=== PATIENT | female | born 1965 | race Caucasian/White ===

== ENCOUNTER → 2016-09-09 | Outpatient (CLI) | payer OTHER ==
[~2016-09-09] MED LIST: ERGO1CAP10 PO; LEVO500T8 PO; LEVO75TA3 PO; LORA-474 PO; NOVOLOGP2 SQ; PRIS100T PO; VITA100064 PO; ZOFR4TAB PO; compazine
[2016-09-09 07:12] LABS: CREATININE RANDOM URINE 23 MG/DL (27-300)
[2016-09-09 07:22] LABS: MICRO ALBUMIN RANDOM URINE RAW LESS THAN 5.0 MG/L (0.0-30.0); MICROALBUMIN/CREAT RATIO RAND 22 MG/G CRE (0-30)
[2016-09-09 07:43] LABS: ALT (GPT) 24 U/L (10-53); ANION GAP 7 MEQ/L (5-15); AST (GOT) 17 U/L (15-37); BICARBONATE 26.8 MEQ/L (21.0-32.0); BLOOD UREA NITROGEN 12 MG/DL (7-18); CHLORIDE 103 MEQ/L (98-107); GLOMERULAR FILTRATION RATE 76 ML/MIN (>89); GLUCOSE,FASTING 277 MG/DL (74-99); POTASSIUM 4.9 MEQ/L (3.5-5.1); SODIUM (NA) 137 MEQ/L (136-145)
[2016-09-09 07:52] LABS: ALKALINE PHOSPHATASE 149 U/L (45-117); FREE T4 0.96 NG/DL (0.76-1.46); HDL CHOLESTEROL 79.6 MG/DL (40.0-60.0); LDL CHOLESTEROL 57 MG/DL (0-99); TOTAL BILIRUBIN ADULT 0.2 MG/DL (0.2-1.0)
[2016-09-09 17:30] LABS: HEMOGLOBIN A1a 1.3 %; HEMOGLOBIN A1b 0.8 %; HEMOGLOBIN Ao 77.6 %; HEMOGLOBIN F 1.9 %; HEMOGLOBIN P3 4.6 %
== END ==
LOC: CLAB 06:36
PROVIDERS: ATTEND Internal Medicine Endocrinology, Diabetes & Metabolism
DX: E11.9 Type 2 diabetes mellitus without complications (principal); I10 Essential (primary) hypertension; E78.5 Hyperlipidemia, unspecified; E03.9 Hypothyroidism, unspecified
CPT/HCPCS: 36415; 80053; 80061; 82043; 83036; 84439; 84443

== ENCOUNTER → 2016-10-15 | Outpatient (CLI) | payer OTHER ==
[2016-10-15 11:21] LABS: BACTERIA, URINE MANY /hpf; BLOOD, URINE MOD (NEG); COMMENT (UR) CULTURE INDICATED; CULTURE IF INDICATED CULTURE INDICATED; GLUCOSE,URINE NEG (NEG); KETONE, URINE NEG (NEG); MUCUS URINE FEW /lpf (OCC); NITRITE,URINE NEG (NEG); TRANSITIONAL EPI CELLS, URINE 1 /hpf; URINE COLOR YELLOW (YELLW/STRAW)
== END ==
LOC: CLAB 10:13
PROVIDERS: ATTEND Internal Medicine
DX: N39.0 Urinary tract infection, site not specified (principal); B96.89 Other specified bacterial agents as the cause of diseases classified elsewhere
CPT/HCPCS: 81001; 87077; 87086; 87186

== ENCOUNTER 2016-10-22 10:34 | Inpatient (IN) | payer OTHER ==
[~2016-10-22] VITALS: Ht 162.6 cm; Wt 82.5 kg
[~2016-10-22 10:34] MED LIST changes: -LEVO500T8 PO; -LORA-474 PO; -VITA100064 PO; -ZOFR4TAB PO; -compazine
[2016-10-22 10:37] VITALS: BP 127/58; PULSE 100; RESP 20; TEMP 98.7; O2SAT 99
[2016-10-22] MEDS ORDERED: VITA100064 PO (10:48)
[2016-10-22] MEDS ORDERED: compazine (10:51)
[2016-10-22] MEDS ORDERED: ZOFR4TAB PO (10:51)
[2016-10-22] MEDS ORDERED: LORA-474 PO (10:51)
[2016-10-22 10:59] VITALS: O2SAT 100
[2016-10-22] MEDS ORDERED: SODIUM CHLORIDE 0.9% FLUSH 10 ML FLUSH IVF PRN (11:00)
[2016-10-22] MEDS ORDERED: ASPIRIN 81 MG CHEW TAB CHEW ONE (11:15)
[2016-10-22] MEDS ORDERED: ONDANSETRON HCL 4 MG/2 ML VIAL IV PUSH ONE (11:15)
[2016-10-22 11:24] LABS: AUTOMATED NEUTROPHIL # 9.8 TH/MM3 (1.8-7.7); BASOPHIL # 0.1 TH/MM3 (0-0.2); BASOPHIL % 0.4 % (0.0-2.0); EOSINOPHIL # 0.1 TH/MM3 (0-0.4); EOSINOPHIL % 0.6 % (0.0-4.0); HEMATOCRIT 39.9 % (35.0-46.0); HEMO FLAGS DIFF FINAL; LYMPH % 9.1 % (9.0-44.0); LYMPHOCYTE # 1.1 TH/MM3 (1.0-4.8); MEAN CELL VOLUME 96.6 FL (80.0-100.0); MEAN CORPUSCULAR HEMOGLOBIN 31.7 PG (27.0-34.0); MEAN CORPUSCULAR HGB CONC 32.8 % (32.0-36.0); MONO % 11.3 % (0.0-8.0); NEUT % 78.6 % (16.0-70.0); PLATELET COUNT 423 TH/MM3 (150-450); RED BLOOD COUNT 4.13 MIL/MM3 (4.00-5.30); RED CELL DISTRIBUTION WIDTH 12.4 % (11.6-17.2); WHITE BLOOD COUNT 12.5 TH/MM3 (4.0-11.0)
--- NOTE | 2016-10-22 11:24 | PD ---
HPI Chief Complaint: GI Complaint Time Seen by Provider: 10:46 Travel History International Travel<30 days: No Contact w/Intl Traveler<30days: No Traveled to known affect area: No History of Present Illness HPI Patient is a 51-year-old female presents emergency Department with epigastric and midsternal chest pain for the past day or so. Patient states she's been having fevers on and off and some discolored urine foul-smelling. Patient states her primary care physician Dr. Rivera prescribes her extra Keflex that she took some of that then she had a urine culture performed with Dr. Rivera which showed sensitivity Cipro. She was switched over to Cipro. She states she still been having some nausea. She states that she is diabetic as well. Never had any problems with her heart no stress test no cardiac catheterization in the past. Denies any shortness of breath. She called her primary care physician today who told her she might have pyelonephritis and referred her to the emergency department. States his symptoms are moderate and worsening over the past week. She also states that she feels dehydrated. PFSH Past Medical History Blood Disorders: No Depression: Yes Cancer: No Cardiovascular Problems: Yes (MURMUR) Diabetes: Yes Diminished Hearing: No Endocrine: Yes (HYPOTHYROID ) Gastrointestinal Disorders: No Genitourinary: No Hepatitis: No Hiatal Hernia: No Immune Disorder: No Musculoskeletal: No Neurologic: No Psychiatric: No Respiratory: No Immunizations Current: No Thyroid Disease: Yes (HYPO) ?: Not Past Surgical History Abdominal Surgery: Yes (INGUINAL AND UMBILICAL HERNIA REPAIR, GASTRIC DUPLICATION REMOVAL) Body Medical Devices: INSULIN PUMP Cardiac Surgery: No Section: Yes (X1) Cholecystectomy: Yes (1989) Ear Surgery: No Endocrine Surgery: No Eye Surgery: No Genitourinary Surgery: No Gynecologic Surgery: Yes (C SECTION) Insulin Pump: Yes Oral Surgery: No Pacemaker: No Thoracic Surgery: No Other Surgery: Yes (inguinal and imbulical hernia repair) Social History Alcohol Use: Yes (RARELY) Tobacco Use: No Substance Use: No Allergies-Medications (Allergen,Severity, Reaction): Coded Allergies: No Known Allergies (Verified , 10/22/16) Reported Meds & Prescriptions Reported Meds & Active Scripts Active Reported [compazine] Zofran (Ondansetron HCl) 4 Mg Tab 4 Mg PO Q8HR PRN Ativan (Lorazepam) 1 Mg Tab 1 Mg PO Q8H PRN Vitamin D (Cholecalciferol) 1,000 Unit Tab 50,000 Units PO WEEKLY Pristiq 24 HR (Desvenlafaxine ER 24 HR) 100 Mg Tab 100 Mg PO DAILY Levothyroxine (Levothyroxine Sodium) 75 Mcg Tab 75 Mcg PO DAILY Novolog Inj (Insulin Aspart) 1,000 Unit/10 Ml Vial 35 Units SQ PUMP Review of Systems Except as stated in HPI: all other systems reviewed are Neg Physical Exam Narrative GENERAL: Well-developed well-nourished, thin in no obvious distress. SKIN: Focused skin assessment warm/dry. HEAD: Atraumatic. Normocephalic. EYES: Pupils equal and round. No scleral icterus. No injection or drainage. ENT: No nasal bleeding or discharge. Mucous membranes pink and moist. NECK: Trachea midline. No JVD. CARDIOVASCULAR: Regular rate and rhythm. No murmur appreciated. 2+ bilateral equal pulses in all 4 extremity's, no carotid bruits. RESPIRATORY: No accessory muscle use. Clear to auscultation. Breath sounds equal bilaterally. GASTROINTESTINAL: Abdomen soft, non-tender, nondistended. Hepatic and splenic margins not palpable. MUSCULOSKELETAL: No obvious deformities. No clubbing. No cyanosis. No edema. NEUROLOGICAL: Awake and alert. No obvious cranial nerve deficits. Motor grossly within normal limits. Normal speech. PSYCHIATRIC: Appropriate mood and affect; insight and judgment normal. Data Data Last Documented VS Vital Signs Date Time Temp Pulse Resp B/P Pulse Ox O2 Delivery O2 Flow Rate FiO2 10/22/16 11:25 99 20 152/68 100 Room Air 10/22/16 10:37 98.7 Orders Electrocardiogram (10/22/16 10:46) Complete Blood Count With Diff (10/22/16 10:46) Comprehensive Metabolic Panel (10/22/16 10:46) Magnesium (Mg) (10/22/16 10:46) Prothrombin Time / Inr (Pt) (10/22/16 10:46) Act Partial Throm Time (Ptt) (10/22/16 10:46) Troponin I (10/22/16 10:46) Chest, Single Ap (10/22/16 10:46) Ecg Monitoring (10/22/16 10:46) Iv Access Insert/Monitor (10/22/16 10:46) Oximetry (10/22/16 10:46) Oxygen Administration (10/22/16 10:46) Sodium Chloride 0.9% Flush (Ns Flush) (10/22/16 11:00) Lactic Acid (10/22/16 10:46) Lipase (10/22/16 10:46) Urinalysis - C+S If Indicated (10/22/16 10:46) Aspirin Chew (Aspirin Chew) (10/22/16 11:15) Ondansetron Inj (Zofran Inj) (10/22/16 11:15) Sodium Chlor 0.9% 1000 Ml Inj (Ns 1000 M (10/22/16 11:30) Metoclopramide Inj (Reglan Inj) (10/22/16 12:00) Sodium Chlor 0.9% 1000 Ml Inj (Ns 1000 M (10/22/16 12:45) Basic Metabolic Panel (Bmp) (10/22/16 13:46) Troponin I (10/22/16 13:46) Beta Hydroxybutyrate (Acetone) (10/22/16 13:46) Meat Packager / Telemetry JÚNIOR.Q8H (10/22/16 14:59) ^ Insert Iv (10/22/16 14:59) Sodium Chlor 0.9% 1000 Ml Inj (Ns 1000 M (10/22/16 14:59) Dext 5%-Nacl 0.9% 1000 Ml Inj (D5w-Ns 10 (10/22/16 14:59) Insulin Regular (Iv Infusion) (Novolin R (10/22/16 15:00) Potassium Chlor 40 Meq Premix (Kcl 40 Me (10/22/16 15:00) Potassium Chlor 40 Meq Premix (Kcl 40 Me (10/22/16 15:00) Potassium Chlor 20 Meq Premix (Kcl 20 Me (10/22/16 15:00) Potassium Chlor 20 Meq Premix (Kcl 20 Me (10/22/16 15:00) Potassium Chlor 20 Meq Premix (Kcl 20 Me (10/22/16 15:00) Potassium Chlor 20 Meq Premix (Kcl 20 Me (10/22/16 15:00) Potassium Chlor 20 Meq Premix (Kcl 20 Me (10/22/16 15:00) Potassium Chlor 20 Meq Premix (Kcl 20 Me (10/22/16 15:00) Sodium Bicarbonate 8.4% Inj (Sodium Bica (10/22/16 15:00) Sodium Bicarbonate 8.4% Inj (Sodium Bica (10/22/16 15:00) Sodium Phosphate Inj (Sodium Phosphate I (10/22/16 15:00) Hemoglobin (Hgb) A1c (10/22/16 14:59) Basic Metabolic Panel (Bmp) (10/22/16 19:59) Basic Metabolic Panel (Bmp) (10/23/16 01:59) Basic Metabolic Panel (Bmp) (10/23/16 07:59) Basic Metabolic Panel (Bmp) (10/23/16 13:59) Magnesium (Mg) (10/22/16 19:59) Magnesium (Mg) (10/23/16 01:59) Magnesium (Mg) (10/23/16 07:59) Magnesium (Mg) (10/23/16 13:59) Phosphorus (Po4) (10/22/16 19:59) Phosphorus (Po4) (10/23/16 01:59) Phosphorus (Po4) (10/23/16 07:59) Phosphorus (Po4) (10/23/16 13:59) Beta Hydroxybutyrate (Acetone) (10/23/16 01:59) Beta Hydroxybutyrate (Acetone) (10/23/16 13:59) Blood Culture (10/22/16 14:59) Blood Gas Venous (Vbg) (10/22/16 14:59) Ciprofloxacin 400 Mg Premix (Cipro 400 M (10/22/16 15:00) Prochlorperazine Inj (Compazine Inj) (10/22/16 16:30) Admit Order (Ed Use Only) (10/22/16 ) Labs Laboratory Tests Test 10/22/16 10/22/16 10/22/16 10/22/16 11:06 11:45 13:50 14:20 White Blood Count 12.5 TH/MM3 Red Blood Count 4.13 MIL/MM3 Hemoglobin 13.1 GM/DL Hematocrit 39.9 % Mean Corpuscular Volume 96.6 FL Mean Corpuscular Hemoglobin 31.7 PG Mean Corpuscular Hemoglobin 32.8 % Concent Red Cell Distribution Width 12.4 % Platelet Count 423 TH/MM3 Mean Platelet Volume 7.8 FL Neutrophils (%) (Auto) 78.6 % Lymphocytes (%) (Auto) 9.1 % Monocytes (%) (Auto) 11.3 % Eosinophils (%) (Auto) 0.6 % Basophils (%) (Auto) 0.4 % Neutrophils # (Auto) 9.8 TH/MM3 Lymphocytes # (Auto) 1.1 TH/MM3 Monocytes # (Auto) 1.4 TH/MM3 Eosinophils # (Auto) 0.1 TH/MM3 Basophils # (Auto) 0.1 TH/MM3 CBC Comment DIFF FINAL Differential Comment Prothrombin Time 10.6 SEC Prothromb Time International 1.0 RATIO Ratio Activated Partial 26.0 SEC Thromboplast Time Sodium Level 138 MEQ/L 141 MEQ/L Potassium Level 4.0 MEQ/L 4.2 MEQ/L Chloride Level 105 MEQ/L 110 MEQ/L Carbon Dioxide Level 16.7 MEQ/L 13.8 MEQ/L Anion Gap 16 MEQ/L 17 MEQ/L Blood Urea Nitrogen 10 MG/DL 9 MG/DL Creatinine 0.89 MG/DL 0.74 MG/DL Estimat Glomerular Filtration 67 ML/MIN 83 ML/MIN Rate Random Glucose 233 MG/DL 244 MG/DL Lactic Acid Level 0.9 mmol/L Calcium Level 9.7 MG/DL 8.0 MG/DL Magnesium Level 1.9 MG/DL Total Bilirubin 0.5 MG/DL Aspartate Amino Transf 22 U/L (AST/SGOT) Alanine Aminotransferase 38 U/L (ALT/SGPT) Alkaline Phosphatase 157 U/L Troponin I LESS THAN 0.02 LESS THAN 0.02 NG/ML NG/ML Total Protein 8.0 GM/DL Albumin 3.5 GM/DL Lipase 60 U/L Urine Color LIGHT-YELLOW Urine Turbidity CLEAR Urine pH 5.5 Urine Specific [place] 1.012 Urine Protein TRACE mg/dL Urine Glucose (UA) 300 mg/dL Urine Ketones 150 mg/dL Urine Occult Blood TRACE Urine Nitrite NEG Urine Bilirubin NEG Urine Urobilinogen LESS THAN 2.0 MG/DL Urine Leukocyte Esterase SMALL Urine RBC 5 /hpf Urine WBC 8 /hpf Urine Squamous Epithelial <1 /hpf Cells Urine Mucus FEW /lpf Microscopic Urinalysis Comment CULT NOT INDICATED B-Hydroxybutyrate 6.53 MMOL/L Blood Gas Puncture Site PERIPHERAL Blood Gas Patient Temperature 98.6 Venous Blood pH 7.29 Venous Blood Partial Pressure 26 mmHg CO2 Venous Blood Partial Pressure 46 mmHg O2 Venous Blood HCO3 12 mmol/L Venous Blood Oxygen Saturation 78 % Venous Blood Oxygen Content 13.4 Vol % Venous Blood Base Excess -13.5 mmol/L Blood Gas Inspired Oxygen 21 % MDM Medical Decision Making Medical Screen Exam Complete: Yes Emergency Medical Condition: Yes Interpretation(s) EKG shows normal sinus rhythm with left axis deviation normal R-wave progression. No concerning ST segment changes, intervals within normal limits. This is a borderline EKG. Differential Diagnosis DKA, CAD, ACS, pancreatitis, gastritis, pyonephritis seems less likely. Narrative Course Patient was roomed emergency department, no CVA tenderness and appears well. I highly doubt pyelonephritis in this patient. Her UA was negative. She was given a dose of ciprofloxacin in the emergency department by IV. She does state that she's been nauseous and vomiting. She does wear a insulin pump at home. Her initial labs do show evidence of anion gap acidosis lactic acid was negative. This could be a mild DKA. She was given 2 L of bolus and a BMP was rechecked which showed actually widening of her gap and worsening or acidosis. ABG was obtained which shows a pH is 7.28. Patient was started on full DKA protocol this time. Initial EKG and troponin are negative. Patient was discussed with hep is on-call for admission to the ICU for DKA and further workup of her chest pain. Critical Care Narrative Aggregate critical care time was 35 minutes. Time to perform other separately billable procedures was not included in the critical care time. My time did not include minutes spent treating any other patients simultaneously or on activities that did not directly contribute to the patient's treatment. The services I provided to this patient were to treat and/or prevent clinically significant deterioration that could result in: , disability, organ failure. I provided critical care services requiring my management, as noted below: Chart data review, documentation time, medication orders and management, vital sign assessments/reviewing monitor data, ordering and reviewing lab tests, ordering and interpreting/reviewing x-rays and diagnostic studies, care of the patient and discussion of the patient with the admitting physicians. Diagnosis Primary Impression: SIRS (systemic inflammatory response syndrome) Additional Impressions: DKA (diabetic ketoacidoses) N&V (nausea and vomiting) Chest pain Admitting Information Admitting Physician Requests: Admit Condition: Stable Stephen Paz MD October 22, 2016 11:24
[2016-10-22 11:25] VITALS: BP 152/68; PULSE 99; RESP 20; O2SAT 100
[2016-10-22] MEDS ORDERED: SODIUM CHLOR 0.9% 1000 ML INJ 1,000 ML IV ONE ×2 (11:30→12:45)
--- NOTE | 2016-10-22 11:38 | RADRPT ---
EXAM DATE/TIME: 10/22/2016 10:48 [facility] COMPARISON: No previous studies available for comparison. INDICATIONS : Chest pain. Patient complains of nausea and vomiting with high fever. MEDICAL HISTORY : Diabetes mellitus type I. SURGICAL HISTORY : None. ENCOUNTER: Initial ACUITY: 2 days PAIN SCORE: 0/10 LOCATION: Bilateral chest FINDINGS: A single view of the chest demonstrates the lungs to be symmetrically aerated without evidence of mas s, infiltrate or effusion. The cardiomediastinal contours are unremarkable. Osseous structures are intact. CONCLUSION: No acute disease. Umesh Justin MD FACR on October 22, 2016 at 11:34 Board Certified Radiologist. This report was verified electronically.
[2016-10-22 11:44] LABS: ANION GAP 16 MEQ/L (5-15); AST (GOT) 22 U/L (15-37); BICARBONATE 16.7 MEQ/L (21.0-32.0); BLOOD UREA NITROGEN 10 MG/DL (7-18); CHLORIDE 105 MEQ/L (98-107); GLOMERULAR FILTRATION RATE 67 ML/MIN (>89); MAGNESIUM 1.9 MG/DL (1.5-2.5); SODIUM (NA) 138 MEQ/L (136-145)
[2016-10-22 11:45] LABS: ALT (GPT) 38 U/L (10-53)
[2016-10-22 11:50] LABS: ALKALINE PHOSPHATASE 157 U/L (45-117); TOTAL BILIRUBIN ADULT 0.5 MG/DL (0.2-1.0)
[2016-10-22 11:51] LABS: PROTHROMBIN TIME - PATIENT 10.6 SEC (9.8-11.6)
[2016-10-22] MEDS ORDERED: METOCLOPRAMIDE HCL 10 MG/2 ML VIAL IV PUSH ONE (12:00)
[2016-10-22 12:24] LABS: BLOOD, URINE TRACE (NEG); COMMENT (UR) CULT NOT INDICATED; CULTURE IF INDICATED CULT NOT INDICATED; GLUCOSE,URINE 300 mg/dL (NEG); KETONE, URINE 150 mg/dL (NEG); MUCUS URINE FEW /lpf (OCC); NITRITE,URINE NEG (NEG); PH, URINE 5.5 (5.0-8.5); SQUAMOUS EPITHELIAL CELL URINE <1 /hpf (0-5); URINE COLOR LIGHT-YELLOW (YELLW/STRAW)
[2016-10-22 14:30] LABS: ANION GAP 17 MEQ/L (5-15); BICARBONATE 13.8 MEQ/L (21.0-32.0); BLOOD UREA NITROGEN 9 MG/DL (7-18); CHLORIDE 110 MEQ/L (98-107); GLOMERULAR FILTRATION RATE 83 ML/MIN (>89); POTASSIUM 4.2 MEQ/L (3.5-5.1); SODIUM (NA) 141 MEQ/L (136-145)
[2016-10-22 14:58] LABS: BETA-HYDROXYBUTYRATE 6.53 MMOL/L (0.00-0.39)
[2016-10-22] MEDS: DEXT 5%-NACL 0.9% 1000 ML INJ 1,000 ML IV SCH ×2 (14:59→19:59)
[2016-10-22] MEDS ORDERED: POTASSIUM CHLOR 40 MEQ PREMIX 100 ML IV PRN ×2 (15:00)
[2016-10-22] MEDS ORDERED: SODIUM BICARBONATE 8.4% SOLN 50 MEQ/50 ML VIAL IV PRN ×2 (15:00)
[2016-10-22] MEDS ORDERED: POTASSIUM CHLOR 20 MEQ PREMIX 100 ML IV PRN ×5 (15:00)
[2016-10-22] MEDS ORDERED: CIPROFLOXACIN 400 MG PREMIX 200 ML IV ONE (15:00)
[2016-10-22] MEDS ORDERED: SODIUM PHOSPHATE INJ 15 MMOL in SODIUM CHLORIDE 0.9% INJ 100 ML IV PRN (15:00)
[2016-10-22] MEDS ORDERED: INSULIN REGULAR (IV INFUSION) 100 UNITS in SODIUM CHLORIDE 0.9% INJ 99 ML IV SCH (15:00)
[2016-10-22 15:32] LABS: BLOOD GAS VENOUS BASE EXCESS -13.5 mmol/L (-2-2); BLOOD GAS VENOUS HCO3 12 mmol/L (22-26); BLOOD GAS VENOUS O2 CONTENT 13.4 Vol % (9.0-17.0); BLOOD GAS VENOUS O2 HGB SAT 78 % (70-76); BLOOD GAS VENOUS PCO2 26 mmHg (44-48); BLOOD GAS VENOUS PO2 46 mmHg (35-40); BLOOD GAS VENOUS pH 7.29 (7.360-7.400); TEMP CORR TO 98.6
[2016-10-22 15:33] LABS: CRITICAL VALUE YES; DRAW SITE PERIPHERAL; FIO2 21 %; STAT YES
[2016-10-22] MEDS ORDERED: PROCHLORPERAZINE INJ 10 MG/2 ML VIAL IV PUSH ONE (16:30)
[2016-10-22] MEDS: SODIUM CHLOR 0.9% 1000 ML INJ 1,000 ML IV SCH ×4 (17:08→23:15)
[2016-10-22 18:04] VITALS: BP 126/61; PULSE 95; RESP 15; TEMP 98.9; O2SAT 97
[2016-10-22] MEDS: POTASSIUM CHLOR 20 MEQ PREMIX 100 ML IV PRN ×2 (18:10→23:54)
--- NOTE | 2016-10-22 18:13 | HHI.HP ---
[facility] Service [facility] Primary Care Physician Patricia Rivera MD Admission Diagnosis DKA, Chest pain Diagnoses: Chief Complaint: Nausea Cloudy foul smelling strong odor urine Travel History International Travel<30 Days: No Contact w/Intl Traveler <30 Da: No Traveled to Known Affected Are: No Sepsis Criteria SIRS Criteria (2 or more): Heart rate over 90 Sepsis Criteria (SIRS+source): Infect source susp/known Criteria Outcome: Meets SIRS criteria History of Present Illness Patient is a 51-year-old female with known history of diabetes insulin- requiring on insulins pump followed by Dr. Tyler as an outpatient who for the past 3 weeks now has been having recurrent UTI. First episode was about second week of September where patient noted cloudy month on the room strong odor of urine. Patient denies anyburning or urgency. Patient states that this is how she gets her UTI. She was given Keflex 500 mg 3 times a day which she took for 5 days and symptoms improved. About 5 days prior to admission, patient noted urine getting cloudy again and this time with the PCP who ordered UA. Her urine culture grew Enterobacter. She was placed on ciprofloxacin 500 mg twice a day.. She also noted fever of 101. Yesterday patient hold her was nauseated and unable to hold down food and hold down ciprofloxacin. Blood sugars were in the 2 300s. Persistence of symptoms prompted consult to ER and admitted for further evaluation. Review of systems patient gets a lot of burning and fullness in the urine with some acid reflux symptoms for the past 4 weeks now. Denies any bowel movement changes. She has Zofran when necessary at home which Review of Systems Constitutional: DENIES: Diaphoretic episodes, Fatigue, Fever, Weight gain, Weight loss, Chills, Dizziness, Change in appetite, Night Sweats Endocrine: DENIES: Abnorml menstrual pattern, Heat/cold intolerance, Polydipsia , Polyuria, Polyphagia Eyes: DENIES: Blurred vision, Diplopia, Eye inflammation, Eye pain, Vision loss , Photosensitivity, Double Vision Ears, nose, mouth, throat: DENIES: Tinnitus, Hearing loss, Vertigo, Nasal discharge, Oral lesions, Throat pain, Hoarseness, Ear Pain, Running Nose, Epistaxis, Sinus Pain, Toothache, Odynophagia Respiratory: DENIES: Apneas, Cough, Snoring, Wheezing, Hemoptysis, Sputum production, Shortness of breath Cardiovascular: DENIES: Chest pain, Palpitations, Syncope, Dyspnea on Exertion , PND, Lower Extremity Edema, Orthopnea, Claudication Gastrointestinal: COMPLAINS OF: Nausea Genitourinary: DENIES: Abnormal vaginal bleeding, Dysmenorrhea, Dyspareunia, Sexual dysfunction, Urinary frequency, Urinary incontinence, Urgency, Hematuria , Dysuria, Nocturia, Vaginal discharge Musculoskeletal: DENIES: Joint pain, Muscle aches, Stiffness, Joint Swelling, Back pain, Neck pain Integumentary: DENIES: Abnormal pigmentation, Pruritus, Rash, Nail changes, Breast masses, Breast skin changes, Nipple discharge Hematologic/lymphatic: DENIES: Bruising, Lymphadenopathy Immunologic/allergic: DENIES: Eczema, Urticaria Neurologic: DENIES: Abnormal gait, Headache, Localized weakness, Paresthesias, Seizures, Speech Problems, Tremor, Poor Balance Psychiatric: DENIES: Anxiety, Confusion, Mood changes, Depression, Hallucinations, Agitation, Suicidal Ideation, Homicidal Ideation, Delusions Past Family Social History Past Medical History Diabetes mellitus on insulins pump Past Surgical History Cholecystectomy Bilateral inguinal hernia surgery Gastric duplication surgery Left shoulder closed reduction manipulation. Reported Medications Zofran by mouth when necessary Prostatic 24 Ativan 1 mg every 8 NovoLog Insulin-dependent pump Synthroid 75 g daily Vitamin D supplement Allergies: Coded Allergies: No Known Allergies (Verified , 10/22/16) Family History Positive family history of colon cancer Social History Nonsmoker very rare alcohol 1 use Denies any substance abuse Physical Exam Vital Signs Vital Signs Date Time Temp Pulse Resp B/P Pulse Ox O2 Delivery O2 Flow Rate FiO2 10/22/16 11:25 99 20 152/68 100 Room Air 10/22/16 10:59 100 Room Air 10/22/16 10:59 100 Room Air 10/22/16 10:37 98.7 100 20 127/58 99 Room Air Physical Exam GENERAL: Weak looking SKIN: No rashes, ecchymoses or lesions. Cool and dry. HEAD: Atraumatic. Normocephalic. No temporal or scalp tenderness. EYES: Pupils equal round and reactive. Extraocular motions intact. No scleral icterus. No injection or drainage. ENT: Nose without bleeding, very dry oral mucosa NECK: Trachea midline. No JVD or lymphadenopathy. Supple, nontender, no meningeal signs. CARDIOVASCULAR: Regular rate and rhythm without murmurs, gallops, or rubs. RESPIRATORY: Clear to auscultation. Breath sounds equal bilaterally. No wheezes , rales, or rhonchi. GASTROINTESTINAL: Abdomen soft, non-tender, nondistended. No hepato-splenomegaly , or palpable masses. No guarding. MUSCULOSKELETAL: Extremities without clubbing, cyanosis, or edema. No joint tenderness, effusion, or edema noted. No calf tenderness. Negative Homans sign bilaterally. NEUROLOGICAL: Awake and alert. Cranial nerves II through XII intact. Motor and sensory grossly within normal limits. Five out of 5 muscle strength in all muscle groups. Normal speech. Laboratory Laboratory Tests Test 10/22/16 10/22/16 10/22/16 10/22/16 11:06 11:45 13:50 14:20 White Blood Count 12.5 Red Blood Count 4.13 Hemoglobin 13.1 Hematocrit 39.9 Mean Corpuscular Volume 96.6 Mean Corpuscular Hemoglobin 31.7 Mean Corpuscular Hemoglobin 32.8 Concent Red Cell Distribution Width 12.4 Platelet Count 423 Mean Platelet Volume 7.8 Neutrophils (%) (Auto) 78.6 Lymphocytes (%) (Auto) 9.1 Monocytes (%) (Auto) 11.3 Eosinophils (%) (Auto) 0.6 Basophils (%) (Auto) 0.4 Neutrophils # (Auto) 9.8 Lymphocytes # (Auto) 1.1 Monocytes # (Auto) 1.4 Eosinophils # (Auto) 0.1 Basophils # (Auto) 0.1 CBC Comment DIFF FINAL Differential Comment Prothrombin Time 10.6 Prothromb Time International 1.0 Ratio Activated Partial 26.0 Thromboplast Time Sodium Level 138 141 Potassium Level 4.0 4.2 Chloride Level 105 110 Carbon Dioxide Level 16.7 13.8 Anion Gap 16 17 Blood Urea Nitrogen 10 9 Creatinine 0.89 0.74 Estimat Glomerular Filtration 67 83 Rate Random Glucose 233 244 Lactic Acid Level 0.9 Calcium Level 9.7 8.0 Magnesium Level 1.9 Total Bilirubin 0.5 Aspartate Amino Transf 22 (AST/SGOT) Alanine Aminotransferase 38 (ALT/SGPT) Alkaline Phosphatase 157 Troponin I LESS THAN 0.02 LESS THAN 0.02 Total Protein 8.0 Albumin 3.5 Lipase 60 Urine Color LIGHT-YELLOW Urine Turbidity CLEAR Urine pH 5.5 Urine Specific [place] 1.012 Urine Protein TRACE Urine Glucose (UA) 300 Urine Ketones 150 Urine Occult Blood TRACE Urine Nitrite NEG Urine Bilirubin NEG Urine Urobilinogen LESS THAN 2.0 Urine Leukocyte Esterase SMALL Urine RBC 5 Urine WBC 8 Urine Squamous Epithelial <1 Cells Urine Mucus FEW Microscopic Urinalysis Comment CULT NOT INDICATED B-Hydroxybutyrate 6.53 Blood Gas Puncture Site PERIPHERAL Blood Gas Patient Temperature 98.6 Venous Blood pH 7.29 Venous Blood Partial Pressure 26 CO2 Venous Blood Partial Pressure 46 O2 Venous Blood HCO3 12 Venous Blood Oxygen Saturation 78 Venous Blood Oxygen Content 13.4 Venous Blood Base Excess -13.5 Blood Gas Inspired Oxygen 21 Date/Time Procedure Status Source Growth 10/22/16 15:40 Aerobic Blood Culture Received Blood Peripheral Pending 10/22/16 15:40 Anaerobic Blood Culture Received Blood Peripheral Pending Result Diagram: 10/22/16 1106 10/22/16 1350 Imaging Last Impressions Chest X-Ray 10/22/16 1046 Signed Impressions: Service Date/Time: Thursday, October 22, 2016 10:48 - CONCLUSION: No acute disease. Umesh Justin MD FACR Assessment and Plan Assessment and Plan 51-year-old female presenting with Mild DKA. Anion gap of 18. Patient appears dehydrated clinically. Positive better hydroxybutyrate on LAD. Patient placed on insulin drip DKA protocol. Admit to IMC for close monitoring. Aggressive IV fluid hydration. Sirs secondary to recurrent UTI. Last recent culture grew Enterobacter aeruginosa. Placed on Cipro as outpatient however I wasn't able to complete because of nausea and vomiting. Get an ultrasound of the kidneys . IV Levaquin daily. Ff c and S Atypical chest pain likely GERD rule out gastroparesis. Start patient on Compazine 5 mg IV every 6 when necessary for nausea vomiting. Start patient on clear liquids. Consider GI consult -EGD. Start patient on IV PPI. History of hypothyroidism. Continue on Synthroid. Teds for DVT prophylaxis. Discussed Condition With Patient and at bedside Physician Certification 2 Midnight Certification Type: Admission for Inpatient Services Order for Inpatient Services The services are ordered in accordance with Medicare regulations or non- Medicare payer requirements, as applicable. In the case of services not specified as inpatient-only, they are appropriately provided as inpatient services in accordance with the 2-midnight benchmark. Estimated LOS (days): 3 days is the estimated time the patient will need to remain in the hospital, assuming treatment plan goals are met and no additional complications. Post-Hospital Plan: Not yet determined Davis Molina MD October 22, 2016 18:13
[2016-10-22 20:00] VITALS: BP 129/60; PULSE 97; RESP 18; TEMP 98.4; O2SAT 100
[2016-10-22 20:37] LABS: ANION GAP 13 MEQ/L (5-15); BLOOD UREA NITROGEN 8 MG/DL (7-18); CHLORIDE 114 MEQ/L (98-107); GLOMERULAR FILTRATION RATE 73 ML/MIN (>89); MAGNESIUM 1.8 MG/DL (1.5-2.5); POTASSIUM 4.2 MEQ/L (3.5-5.1); SODIUM (NA) 141 MEQ/L (136-145)
[2016-10-22] MEDS ORDERED: TEMAZEPAM 7.5 MG CAP PO PRN (21:00)
[2016-10-22] MEDS: PANTOPRAZOLE SODIUM 40 MG VIAL IV PUSH SCH (21:53)
[2016-10-22 22:00] VITALS: PULSE 88
[2016-10-22] MEDS ORDERED: CHLORHEXIDINE GLUCONATE 2 % 1 PACK (2 CLOTHS)(extra cloths) TOPICAL PRN (22:30)
[2016-10-22] MEDS ORDERED: INSULIN DETEMIR 100 UNITS/ML VIAL SQ ONE (23:15)
[2016-10-23] VITALS (16 sets, daily range): BP systolic 111–151; BP diastolic 53–68; PULSE 87–102; RESP 15–25; TEMP 98.1–98.6; O2SAT 83–100
[2016-10-23] MEDS: DEXT 5%-NACL 0.9% 1000 ML INJ 1,000 ML IV SCH ×4 (00:59→10:18)
[2016-10-23 02:49] LABS: BICARBONATE 9.2 MEQ/L (21.0-32.0); MAGNESIUM 1.7 MG/DL (1.5-2.5); POTASSIUM 4.7 MEQ/L (3.5-5.1)
[2016-10-23 02:58] LABS: BETA-HYDROXYBUTYRATE 7.92 MMOL/L (0.00-0.39)
[2016-10-23] MEDS: SODIUM CHLOR 0.9% 1000 ML INJ 1,000 ML IV SCH ×7 (02:59→22:53)
[2016-10-23] MEDS: CHLORHEXIDINE GLUCONATE 2 % 1 PACK (2 CLOTHS)(taper/protocol) TOPICAL SCH (04:00)
[2016-10-23] MEDS: PROCHLORPERAZINE INJ 10 MG/2 ML VIAL IV PUSH PRN ×2 (05:02→12:52)
[2016-10-23] MEDS: PANTOPRAZOLE SODIUM 40 MG VIAL IV PUSH SCH ×2 (05:05→17:51)
[2016-10-23] MEDS: LEVOFLOXACIN 500 MG PREMIX INJ 100 ML IV SCH (05:06)
[2016-10-23] MEDS: LEVOTHYROXINE SODIUM 75 MCG TAB PO SCH (05:07)
[2016-10-23] MEDS ORDERED: INSULIN HUMAN REGULAR 1,000 UNITS/10 ML VIAL IV PUSH ONE (08:00)
--- NOTE | 2016-10-23 08:39 | RADRPT ---
EXAM DATE/TIME: 10/23/2016 07:51 [facility] COMPARISON: No previous studies available for comparison. INDICATIONS : Obstruction. MEDICAL HISTORY : Hypothyroidism. Osteoarthritis. Peripheral neuropathy. Heart murmur. Diabetes. SURGICAL HISTORY : Cholecystectomy. section. Tubal ligation. Gastroduplication removal. Inguinal and umbilical hernia repair. ENCOUNTER: Initial ACUITY: 2 days PAIN SCORE: 0/10 LOCATION: Bilateral flank MEASUREMENTS: RIGHT KIDNEY: 10.8 x 5.4 x 4.8 cm LEFT KIDNEY: 10.1 x 5.1 x 5.3 cm FINDINGS: RIGHT KIDNEY: Renal cortex is normal in thickness and echotexture. No hydronephrosis, stone, or mass. There is an anechoic avascular lesion representing a simple cyst in the right mid kidney measuring 14 mm. LEFT KIDNEY: Renal cortex is normal in thickness and echotexture. No hydronephrosis, stone, or mass. BLADDER: Within normal limits given the degree of distension. CONCLUSION: Normal ultrasound appearance of the kidneys. There are no signs of obstruction. Kalyan Cummings MD on October 23, 2016 at 8:36 Board Certified Radiologist. This report was verified electronically.
[2016-10-23] MEDS ORDERED: CHOLECALCIFEROL (VIT D3) 1000 UNIT TAB PO SCH (09:00)
[2016-10-23 11:10] LABS: BICARBONATE 10.7 MEQ/L (21.0-32.0); MAGNESIUM 1.9 MG/DL (1.5-2.5); POTASSIUM 4.7 MEQ/L (3.5-5.1)
--- NOTE | 2016-10-23 12:04 | EKG ---
Date Performed: 10/22/2016 Time Performed: 11:07:17 PTAGE: 51 years EKG: Sinus rhythm MARKED LEFT AXIS DEVIATION ABNORMAL ECG PREVIOUS TRACING : 09/18/2004 09.55 Compared to prior tracing no significant change DOCTOR: Ishan Diego Interpretating Date/Time 10/23/2016 12:03:25
--- NOTE | 2016-10-23 15:38 | HHI.PR ---
Subjective Remarks feeling better tolerated clears no abdominal pain Objective Vitals Vital Signs Date Time Temp Pulse Resp B/P Pulse Ox O2 Delivery O2 Flow Rate FiO2 10/23/16 14:00 96 10/23/16 13:00 102 10/23/16 12:00 97 10/23/16 12:00 97 19 123/58 100 10/23/16 12:00 97 10/23/16 11:00 96 24 127/60 10/23/16 11:00 96 10/23/16 11:00 96 10/23/16 11:00 96 10/23/16 08:00 98.1 10/23/16 06:00 87 10/23/16 04:00 98.3 90 18 112/56 99 10/23/16 04:00 90 10/23/16 02:00 92 10/23/16 00:00 98.6 91 20 111/53 100 10/23/16 00:00 91 10/22/16 22:00 88 10/22/16 20:00 98.4 97 18 129/60 100 10/22/16 20:00 97 10/22/16 18:04 98.9 95 15 126/61 97 Room Air I/O 10/22/16 10/22/16 10/22/16 10/23/16 10/23/16 10/23/16 06:59 14:59 22:59 06:59 14:59 22:59 Intake Total 1679 ml 592 ml 1321 ml Output Total 25 ml 800 ml Balance -25 ml 1679 ml 592 ml 521 ml Intake Oral 300 ml 80 ml 640 ml IV Total 1379 ml 512 ml 681 ml Output Urine Total 800 ml Emesis 25 ml # Voids 1 1 2 # Bowel Movements 0 0 Result Diagram: 10/22/16 1106 10/23/16 1020 Imaging Last Impressions Renal Ultrasound 10/23/16 0000 Signed Impressions: Service Date/Time: October 07:51 - CONCLUSION: Normal ultrasound appearance of the kidneys. There are no signs of obstruction. Kalyan Cumminsg MD Chest X-Ray 10/22/16 1046 Signed Impressions: Service Date/Time: Saturday, October 22, 2016 10:48 - CONCLUSION: No acute disease. Umesh Justin MD FACR Objective Remarks awake and alert, NAD anicteric lungs no rales or wheezes regular rhythm abdomen soft, nontender, insulin pump site- no signs of erythema extremiteis no edema neuro exam- non focal A/P Assessment and Plan 51-year-old female presenting with Mild DKA.- gap 18. back on insulin drip. FF blood sugars and anion gapPatient placed on insulin drip DKA protocol. Admit to IMC for close monitoring. Aggressive IV fluid hydration. Sirs secondary to recurrent UTI. Last recent culture grew Enterobacter aeruginosa. Placed on Cipro as outpatient however wasn't able to complete because of nausea and vomiting. US of kidneys no obstruction/hydronephrosis.. IV Levaquin daily. Ff c and S Place patient back on her insulin pump and increase basal rate- she is very reliable regarding this. d/w patient and staff nurse. Atypical chest pain likely GERD rule out gastroparesis. Start patient on Compazine 5 mg IV every 6 when necessary for nausea vomiting. Advance diet. on IV PPI. History of hypothyroidism. Continue on Synthroid. Increase activity. Teds for DVT prophylaxis. Davis Molina MD Oct 23, 2016 15:38
[2016-10-23 15:39] LABS: BICARBONATE 10.7 MEQ/L (21.0-32.0); MAGNESIUM 1.8 MG/DL (1.5-2.5); POTASSIUM 4.5 MEQ/L (3.5-5.1)
[2016-10-23 15:51] LABS: BETA-HYDROXYBUTYRATE 6.95 MMOL/L (0.00-0.39)
[2016-10-23] MEDS ORDERED: SODIUM BICARBONATE 650 MG TAB PO ONE (16:00)
[2016-10-23 16:21] LABS: HEMOGLOBIN A1a 1.7 %; HEMOGLOBIN A1b 0.8 %; HEMOGLOBIN Ao 78.7 %; HEMOGLOBIN F 1.8 %; HEMOGLOBIN LA1C 2.4 %; HEMOGLOBIN P3 4.5 %
[2016-10-23 21:40] LABS: BICARBONATE 12.7 MEQ/L (21.0-32.0); MAGNESIUM 1.7 MG/DL (1.5-2.5); POTASSIUM 3.9 MEQ/L (3.5-5.1)
[2016-10-24] VITALS (11 sets, daily range): BP systolic 124–159; BP diastolic 58–72; PULSE 80–96; RESP 13–26; TEMP 97.9–98.3; O2SAT 97–100
[2016-10-24] MEDS: CHLORHEXIDINE GLUCONATE 2 % 1 PACK (2 CLOTHS)(taper/protocol) TOPICAL SCH (04:00)
[2016-10-24] MEDS: LEVOFLOXACIN 500 MG PREMIX INJ 100 ML IV SCH (06:00)
[2016-10-24] MEDS: LEVOTHYROXINE SODIUM 75 MCG TAB PO SCH (06:00)
[2016-10-24] MEDS: PANTOPRAZOLE SODIUM 40 MG VIAL IV PUSH SCH (06:00)
[2016-10-24] MEDS: SODIUM CHLOR 0.9% 1000 ML INJ 1,000 ML IV SCH (08:53)
[2016-10-24 10:18] LABS: BICARBONATE 16.5 MEQ/L (21.0-32.0); POTASSIUM 3.6 MEQ/L (3.5-5.1)
[2016-10-24] MEDS ORDERED: SODIUM BICARBONATE 650 MG TAB PO ONE (13:15)
--- NOTE | 2016-10-24 13:38 | HHI.PR ---
Subjective Remarks doing great tolerating po well with no nausea or vomiting no urinary symptoms no flank pain Objective Vitals Vital Signs Date Time Temp Pulse Resp B/P Pulse Ox O2 Delivery O2 Flow Rate FiO2 10/24/16 12:00 90 10/24/16 10:00 88 10/24/16 08:00 97.9 88 14 140/63 98 10/24/16 08:00 80 10/24/16 06:00 86 10/24/16 04:00 87 10/24/16 04:00 97.9 87 13 138/68 97 10/24/16 02:00 85 10/24/16 00:00 87 10/24/16 00:00 98.3 92 17 124/58 98 10/23/16 22:00 88 10/23/16 20:00 94 20 151/68 99 10/23/16 20:00 93 10/23/16 18:01 97 10/23/16 18:00 95 10/23/16 17:00 92 10/23/16 16:00 90 10/23/16 16:00 90 10/23/16 16:00 90 22 145/61 10/23/16 15:00 91 10/23/16 15:00 91 18 119/58 98 10/23/16 15:00 91 10/23/16 14:00 96 10/23/16 14:00 96 10/23/16 14:00 96 15 123/56 100 10/23/16 14:00 96 I/O 10/23/16 10/23/16 10/23/16 10/24/16 10/24/16 10/24/16 06:59 14:59 22:59 06:59 14:59 22:59 Intake Total 592 ml 1321 ml 655 ml 437 ml Output Total 800 ml 700 ml Balance 592 ml 521 ml 655 ml -263 ml Intake Oral 80 ml 640 ml 355 ml 120 ml IV Total 512 ml 681 ml 300 ml 317 ml Output Urine Total 800 ml 700 ml # Voids 2 1 # Bowel Movements 0 0 0 Result Diagram: 10/22/16 1106 10/24/16 0831 Imaging Last Impressions Renal Ultrasound 10/23/16 0000 Signed Impressions: Service Date/Time: October 07:51 - CONCLUSION: Normal ultrasound appearance of the kidneys. There are no signs of obstruction. Kalyan Cummings MD Chest X-Ray 10/22/16 1046 Signed Impressions: Service Date/Time: Saturday, October 22, 2016 10:48 - CONCLUSION: No acute disease. Umesh Justin MD FACR Objective Remarks awake and alert, NAD anicteric lungs no rales or wheezes regular rhythm abdomen soft, nontender, insulin pump site- no signs of erythema, no CVA tenderness extremiteis no edema neuro exam- non focal A/P Assessment and Plan 51-year-old female presenting with Mild DKA.- gap 18. back on insulin drip. FF blood sugars and anion gapPatient placed on insulin drip DKA protocol. Admit to IMC for close monitoring. Aggressive IV fluid hydration. Sirs secondary to recurrent UTI. Last recent culture grew Enterobacter aeruginosa. Placed on Cipro as outpatient however wasn't able to complete because of nausea and vomiting. US of kidneys no obstruction/hydronephrosis.. IV Levaquin daily. repeat C and S negative. but previous grw enterobacter. sensitive to quinolone. DC home on Levaquin 500 mg po x [address] patient back on her insulin pump and increase basal rate- she is very reliable regarding this. d/w patient and staff nurse. Atypical chest pain likely GERD rule out gastroparesis. Start patient on Compazine 5 mg IV every 6 when necessary for nausea vomiting. Advance diet. on IV PPI. History of hypothyroidism. Continue on Synthroid. Increase activity. DC home today FF up with PCP Repeat UA in 1 week c/o PCP Davis Molina MD Oct 24, 2016 13:38
[2016-10-24] MEDS ORDERED: LEVO500T8 PO (13:51)
--- NOTE | 2016-10-24 13:52 | HHI.DS ---
Discharge Summary Admission Date October 22, 2016 at 17:34 Discharge Date: Oct 24, 2016 Admitting Diagnosis DKA, Chest pain (1) DKA (diabetic ketoacidoses) ICD Code: E13.10 Diagnosis: Principal (2) UTI (urinary tract infection) ICD Code: N39.0 Diagnosis: Principal Procedures none Brief History - From Admission Patient is a 51-year-old female with known history of diabetes insulin- requiring on insulins pump followed by Dr. Tyler as an outpatient who for the past 3 weeks now has been having recurrent UTI. First episode was about second week of September where patient noted cloudy month on the room strong odor of urine. Patient denies anyburning or urgency. Patient states that this is how she gets her UTI. She was given Keflex 500 mg 3 times a day which she took for 5 days and symptoms improved. About 5 days prior to admission, patient noted urine getting cloudy again and this time with the PCP who ordered UA. Her urine culture grew Enterobacter. She was placed on ciprofloxacin 500 mg twice a day.. She also noted fever of 101. Yesterday patient hold her was nauseated and unable to hold down food and hold down ciprofloxacin. Blood sugars were in the 2 300s. Persistence of symptoms prompted consult to ER and admitted for further evaluation. Review of systems patient gets a lot of burning and fullness in the urine with some acid reflux symptoms for the past 4 weeks now. Denies any bowel movement changes. She has Zofran when necessary at home which CBC/BMP: 10/22/16 1106 10/24/16 0831 Significant Findings Laboratory Tests Test 10/22/16 10/22/16 10/22/16 10/22/16 11:06 11:45 13:50 14:20 White Blood Count 12.5 TH/MM3 (4.0-11.0) Neutrophils (%) (Auto) 78.6 % (16.0-70.0) Monocytes (%) (Auto) 11.3 % (0.0-8.0) Neutrophils # (Auto) 9.8 TH/MM3 (1.8-7.7) Monocytes # (Auto) 1.4 TH/MM3 (0-0.9) Carbon Dioxide Level 16.7 MEQ/L 13.8 MEQ/L (21.0-32.0) (21.0-32.0) Anion Gap 16 MEQ/L (5-15) 17 MEQ/L (5-15) Estimat Glomerular Filtration 67 ML/MIN (>89) 83 ML/MIN (>89) Rate Random Glucose 233 MG/DL 244 MG/DL (74-106) (74-106) Alkaline Phosphatase 157 U/L (45-117) Troponin I LESS THAN 0.02 LESS THAN 0.02 NG/ML NG/ML (0.02-0.05) (0.02-0.05) Lipase 60 U/L (73-393) Urine Glucose (UA) 300 mg/dL (NEG) Urine Ketones 150 mg/dL (NEG) Urine Occult Blood TRACE (NEG) Urine Leukocyte Esterase SMALL (NEG) Urine RBC 5 /hpf (0-3) Urine WBC 8 /hpf (0-5) Urine Mucus FEW /lpf (OCC) Chloride Level 110 MEQ/L (98-107) Calcium Level 8.0 MG/DL (8.5-10.1) B-Hydroxybutyrate 6.53 MMOL/L (0.00-0.39) Venous Blood pH 7.29 (7.360-7.400) Venous Blood Partial Pressure 26 mmHg (44-48) CO2 Venous Blood Partial Pressure 46 mmHg (35-40) O2 Venous Blood HCO3 12 mmol/L (22-26) Venous Blood Oxygen Saturation 78 % (70-76) Venous Blood Base Excess -13.5 mmol/L (-2-2) Test 10/22/16 10/23/16 10/23/16 10/23/16 19:47 02:16 10:20 14:20 Chloride Level 114 MEQ/L 108 MEQ/L 109 MEQ/L 110 MEQ/L (98-107) (98-107) (98-107) (98-107) Carbon Dioxide Level 14.0 MEQ/L 9.2 MEQ/L 10.7 MEQ/L 10.7 MEQ/L (21.0-32.0) (21.0-32.0) (21.0-32.0) (21.0-32.0) Estimat Glomerular Filtration 73 ML/MIN (>89) 73 ML/MIN (>89) 58 ML/MIN (>89) 69 ML/MIN (>89) Rate Random Glucose 165 MG/DL 334 MG/DL 269 MG/DL 232 MG/DL (74-106) (74-106) (74-106) (74-106) Hemoglobin A1c 10.1 % (4.3-6.0) Phosphorus Level 1.6 MG/DL 2.4 MG/DL 2.0 MG/DL (2.5-4.9) (2.5-4.9) (2.5-4.9) Anion Gap 20 MEQ/L (5-15) 20 MEQ/L (5-15) 19 MEQ/L (5-15) B-Hydroxybutyrate 7.92 MMOL/L 6.95 MMOL/L (0.00-0.39) (0.00-0.39) Creatinine 1.01 MG/DL (0.50-1.00) Test 10/23/16 10/24/16 21:09 08:31 Chloride Level 110 MEQ/L 110 MEQ/L (98-107) (98-107) Carbon Dioxide Level 12.7 MEQ/L 16.5 MEQ/L (21.0-32.0) (21.0-32.0) Blood Urea Nitrogen 5 MG/DL (7-18) 4 MG/DL (7-18) Estimat Glomerular Filtration 62 ML/MIN (>89) 83 ML/MIN (>89) Rate Random Glucose 184 MG/DL 143 MG/DL (74-106) (74-106) Phosphorus Level 1.8 MG/DL (2.5-4.9) Calcium Level 8.1 MG/DL (8.5-10.1) Imaging Last Impressions Renal Ultrasound 10/23/16 0000 Signed Impressions: Service Date/Time: October 07:51 - CONCLUSION: Normal ultrasound appearance of the kidneys. There are no signs of obstruction. Kalyan Cummings MD Chest X-Ray 10/22/16 1046 Signed Impressions: Service Date/Time: Saturday, October 22, 2016 10:48 - CONCLUSION: No acute disease. Umesh Justin MD FACR PE at Discharge awake and alert, NAD anicteric lungs no rales or wheezes regular rhythm abdomen soft, nontender, insulin pump site- no signs of erythema, no CVA tenderness extremiteis no edema neuro exam- non focal Pt update on day of discharge afebrile, no abdomnal pain, voiding spontaneously, no nausea Hospital Course 51-year-old female presenting with Mild DKA.- gap 18. back on insulin drip. FF blood sugars and anion gapPatient placed on insulin drip DKA protocol. Admit to IMC for close monitoring. Aggressive IV fluid hydration. Sirs secondary to recurrent UTI. Last recent culture grew Enterobacter aeruginosa. Placed on Cipro as outpatient however wasn't able to complete because of nausea and vomiting. US of kidneys no obstruction/hydronephrosis.. IV Levaquin daily. repeat C and S negative. but previous grw enterobacter. sensitive to quinolone. DC home on Levaquin 500 mg po x [address] patient back on her insulin pump and increase basal rate- she is very reliable regarding this. d/w patient and staff nurse. Atypical chest pain likely GERD rule out gastroparesis. Start patient on Compazine 5 mg IV every 6 when necessary for nausea vomiting. Advance diet. on IV PPI. History of hypothyroidism. Continue on Synthroid. Increase activity. DC home today FF up with PCP Repeat UA in 1 week c/o PCP Pt Condition on Discharge: Stable Discharge Disposition: Discharge Home Discharge Time: <= 30 minutes Discharge Instructions DIET: Follow Instructions for: Diabetic Diet Speech Therapy-Diet Recommends: Regular Activities you can perform: Weight Bearing as Iggy Follow up Referrals: PCP Follow-up - 1 Week with Nicole New Orders: URINALYSIS - 1 Week New Medications: Levofloxacin (Levofloxacin) 500 Mg Tablet 500 MG PO DAILY Infection #5 Ref 0 TAB Continued Medications: Cholecalciferol (Vitamin D) 1,000 Unit Tab 29553 UNITS PO WEEKLY Nutritional Supplement #1 Ref 0 BOTTLE Desvenlafaxine ER 24 HR (Pristiq 24 HR) 100 Mg Tab 100 MG PO DAILY TAB Insulin Aspart Inj (Novolog Inj) 1,000 Unit/10 Ml Vial 35 UNITS SQ Pump Blood Sugar Management #10 Ref 0 ML Levothyroxine (Levothyroxine) 75 Mcg Tab 75 MCG PO DAILY Thyroid #30 Ref 0 TAB Ondansetron (Zofran) 4 Mg Tab 4 MG PO Q8HR PRN NAUSEA OR VOMITING Ref 0 TAB Discontinued Medications: Lorazepam (Ativan) 1 Mg Tab 1 MG PO Q8H PRN ANXIETY AND/OR AGITATION Ref 0 TAB ([compazine]) Davis Molina MD Oct 24, 2016 13:52
== END 2016-10-24 14:40 | disposition home or self-care (01) | DRG 638 ==
LOC: NEPC 10:34 → NEDA 17:34 → HIMW 18:45
PROVIDERS: ADMIT Internal Medicine; ATTEND Internal Medicine
DX: E13.10 Other specified diabetes mellitus with ketoacidosis without coma (principal); N39.0 Urinary tract infection, site not specified; F32.9 Major depressive disorder, single episode, unspecified; E03.9 Hypothyroidism, unspecified; E86.0 Dehydration; R30.0 Dysuria; K21.9 Gastro-esophageal reflux disease without esophagitis; Z96.41 Presence of insulin pump (external) (internal); Z87.440 Personal history of urinary (tract) infections; Z79.4 Long term (current) use of insulin; Z80.0 Family history of malignant neoplasm of digestive organs
CPT/HCPCS: 71010; 76775; 80048; 80053; 81001; 82010; 82805; 82948; 83036; 83605; 83690; 83735; 84100; 84484; 85025; 85610; 85730; 87040; 87641; 93005; 96361; 96365; 96368; 96375; C9113; J0744; J0780; J1815; J1817; J1956; J2405; J2765; J3480; J7030; J7042

== ENCOUNTER → 2017-04-21 | Outpatient (CLI) | payer OTHER ==
[~2017-04-21] MED LIST changes: -ERGO1CAP10 PO; +LEVO500T8 PO; +VITA100064 PO; +ZOFR4TAB PO
[2017-04-21 07:35] LABS: ALT (GPT) 30 U/L (10-53); ANION GAP 5 MEQ/L (5-15); AST (GOT) 23 U/L (15-37); BICARBONATE 28.9 MEQ/L (21.0-32.0); BLOOD UREA NITROGEN 17 MG/DL (7-18); CHLORIDE 103 MEQ/L (98-107); GLOMERULAR FILTRATION RATE 84 ML/MIN (>89); GLUCOSE,FASTING 220 MG/DL (74-99); POTASSIUM 4.9 MEQ/L (3.5-5.1); SODIUM (NA) 137 MEQ/L (136-145)
[2017-04-21 07:37] LABS: ALKALINE PHOSPHATASE 125 U/L (45-117); TOTAL BILIRUBIN ADULT 0.3 MG/DL (0.2-1.0)
== END ==
LOC: CLAB 06:33
PROVIDERS: ATTEND Internal Medicine Endocrinology, Diabetes & Metabolism
DX: E78.5 Hyperlipidemia, unspecified (principal); E55.9 Vitamin D deficiency, unspecified
CPT/HCPCS: 36415; 80053; 82306

== ENCOUNTER → 2017-08-14 | Outpatient (CLI) | payer OTHER ==
[2017-08-14 07:59] LABS: ALT (GPT) 39 U/L (10-53); AST (GOT) 32 U/L (15-37); BICARBONATE 29.2 MEQ/L (21.0-32.0); BLOOD UREA NITROGEN 13 MG/DL (7-18); CALCIUM 9.2 MG/DL (8.5-10.1); CHLORIDE 103 MEQ/L (98-107); CHOLESTEROL 161 MG/DL (120-200); GLOMERULAR FILTRATION RATE 75 ML/MIN (>89); GLUCOSE,FASTING 166 MG/DL (74-99); SODIUM (NA) 139 MEQ/L (136-145)
[2017-08-14 08:08] LABS: ALKALINE PHOSPHATASE 116 U/L (45-117); CHOLESTEROL/ HDL RATIO 2.04 RATIO; FREE T4 1.15 NG/DL (0.76-1.46); HDL CHOLESTEROL 78.9 MG/DL (40.0-60.0); LDL CHOLESTEROL 63 MG/DL (0-99); TOTAL BILIRUBIN ADULT 0.5 MG/DL (0.2-1.0); TRIGLYCERIDES 97 MG/DL (42-150)
[2017-08-14 19:26] LABS: HEMOGLOBIN A1C 9.6 % (4.3-6.0)
== END ==
LOC: CLAB 06:56
PROVIDERS: ATTEND Internal Medicine Endocrinology, Diabetes & Metabolism
DX: E78.5 Hyperlipidemia, unspecified (principal); E55.9 Vitamin D deficiency, unspecified; I10 Essential (primary) hypertension; E11.9 Type 2 diabetes mellitus without complications
CPT/HCPCS: 36415; 80053; 80061; 82043; 82306; 83036; 84439; 84443

== ENCOUNTER 2017-11-10 09:55 | Inpatient (IN) | payer OTHER ==
[2017-11-10] VITALS (12 sets, daily range): BP systolic 102–139; BP diastolic 58–90; PULSE 87–102; RESP 17–22; TEMP 97.7–99.6; O2SAT 95–100
[~2017-11-10] VITALS: Ht 162.6 cm; Wt 60.5 kg
[2017-11-10] MEDS ORDERED: SODIUM CHLOR 0.9% 1000 ML INJ 1,000 ML IV ONE ×2 (10:08→10:30)
[2017-11-10] MEDS ORDERED: PRIS100T PO (10:09)
[2017-11-10] MEDS ORDERED: SODIUM CHLORIDE 0.9% FLUSH 10 ML FLUSH IVF PRN (10:15)
[2017-11-10] MEDS ORDERED: DEXT 5%-NACL 0.9% 1000 ML INJ 1,000 ML IV SCH (10:23)
[2017-11-10] MEDS ORDERED: SODIUM CHLOR 0.9% 1000 ML INJ 1,000 ML IV SCH (10:23)
[2017-11-10] MEDS ORDERED: POTASSIUM CHLOR 20 MEQ PREMIX 100 ML IV PRN ×10 (10:30→12:30)
[2017-11-10] MEDS ORDERED: SODIUM PHOSPHATE INJ 15 MMOL in SODIUM CHLORIDE 0.9% INJ 100 ML IV PRN ×2 (10:30→11:30)
[2017-11-10] MEDS ORDERED: INSULIN REGULAR (IV INFUSION) 100 UNITS in SODIUM CHLORIDE 0.9% INJ 99 ML IV PRN ×2 (10:30→11:15)
[2017-11-10] MEDS ORDERED: SODIUM BICARBONATE 8.4% SOLN 50 MEQ/50 ML VIAL IV PUSH PRN ×4 (10:30→11:30)
[2017-11-10 10:39] LABS: AUTOMATED NEUTROPHIL # 10.6 TH/MM3 (1.8-7.7); BASOPHIL % 0.4 % (0.0-2.0); EOSINOPHIL % 0.1 % (0.0-4.0); HEMATOCRIT 43.4 % (35.0-46.0); HEMOGLOBIN 14.3 GM/DL (11.6-15.3); LYMPH % 8.9 % (9.0-44.0); LYMPHOCYTE # 1.1 TH/MM3 (1.0-4.8); MEAN CORPUSCULAR HEMOGLOBIN 32.3 PG (27.0-34.0); MEAN PLATELET VOLUME 8.3 FL (7.0-11.0); MONO % 3.5 % (0.0-8.0); MONOCYTE # 0.4 TH/MM3 (0-0.9); NEUT % 87.1 % (16.0-70.0); PLATELET COUNT 332 TH/MM3 (150-450); RED BLOOD COUNT 4.43 MIL/MM3 (4.00-5.30); RED CELL DISTRIBUTION WIDTH 12.4 % (11.6-17.2); WHITE BLOOD COUNT 12.2 TH/MM3 (4.0-11.0)
--- NOTE | 2017-11-10 10:46 | RADRPT ---
EXAM DATE: 11/10/2017 10:33 AM EDT AGE/SEX: 52 years / Female INDICATIONS: Short of breath, heart racing today. CLINICAL DATA: This is the patient's initial encounter. Patient reports that signs and symptoms have been present for 1 day and indicates a pain score of 0/10. MEDICAL/SURGICAL HISTORY: Diabetes mellitus type I. None. [place] [facility] [place] . FINDINGS: Today's exam is compared to the prior study. There is a questionable 5 mm faint pulmonary nodule proj ected over the peripheral left upper lung. This was not present on the prior study. Otherwise, the re st the lung soctt are grossly clear. No acute pulmonary infiltrates. No pleural effusions or pulmona ry edema. The heart size is within normal limits. The bony structures are stable. CONCLUSION: 1. Questionable new faint 5 mm pulmonary nodule peripheral left upper lung. Recommend repeat study w ith a two-view chest x-ray. 2. Otherwise, no acute intrathoracic disease. Electronically signed by: Vinnie Blair MD 11/10/2017 10:45 AM EDT
[2017-11-10 11:01] LABS: ALBUMIN 4.3 GM/DL (3.4-5.0); BICARBONATE 12.4 MEQ/L (21.0-32.0); BLOOD UREA NITROGEN 13 MG/DL (7-18); CALCIUM 9.3 MG/DL (8.5-10.1); CHLORIDE 104 MEQ/L (98-107); CREATININE 1.04 MG/DL (0.50-1.00); GLOMERULAR FILTRATION RATE 56 ML/MIN (>89); GLUCOSE,RANDOM 289 MG/DL (74-106); SODIUM (NA) 137 MEQ/L (136-145)
--- NOTE | 2017-11-10 11:03 | PD ---
HPI Chief Complaint: Diabetic Time Seen by Provider: 10:20 Travel History International Travel<30 days: No Contact w/Intl Traveler<30days: No Traveled to known affect area: No History of Present Illness HPI 52-year-old female presents with nausea and general ill feeling like she is in DKA. She states her symptoms just started this morning. She states that she has had DKA before and she wanted to catch it early. She denies any other concurrent complaints. She denies modifying factors other than when she moves around. Quality is ill feeling. Severity is progressive. PFSH Past Medical History Blood Disorders: No Depression: Yes Cancer: No Cardiovascular Problems: Yes (MURMUR) Diabetes: Yes Patient Takes Glucophage: No Diminished Hearing: No Endocrine: Yes (HYPOTHYROID ) Gastrointestinal Disorders: No Genitourinary: No Hepatitis: No Hiatal Hernia: No Hypertension: No Immune Disorder: No Medical other: Yes Musculoskeletal: No Neurologic: No Psychiatric: No Respiratory: No Immunizations Current: No Thyroid Disease: Yes (HYPO) Tetanus Vaccination: < 5 Years ?: Not Menopausal: Yes : 1 Past Surgical History Abdominal Surgery: Yes (INGUINAL AND UMBILICAL HERNIA REPAIR, GASTRIC DUPLICATION REMOVAL) Body Medical Devices: INSULIN PUMP Cardiac Surgery: No Section: Yes (X1) Cholecystectomy: Yes (1989) Ear Surgery: No Endocrine Surgery: No Eye Surgery: No Genitourinary Surgery: No Gynecologic Surgery: Yes (C SECTION) Insulin Pump: Yes Oral Surgery: No Pacemaker: No Thoracic Surgery: No Other Surgery: Yes (inguinal and imbulical hernia repair) Family History Family Hypercholesterolemia: Yes Social History Alcohol Use: Yes (RARELY) Tobacco Use: No Substance Use: No Allergies-Medications (Allergen,Severity, Reaction): Coded Allergies: No Known Allergies (Verified Allergy, Unknown, 11/10/17) Reported Meds & Prescriptions Reported Meds & Active Scripts Active Reported Pristiq 24 HR (Desvenlafaxine ER 24 HR) 100 Mg Tab 100 Mg PO HS Zofran (Ondansetron HCl) 4 Mg Tab 4 Mg PO Q8HR PRN Levothyroxine (Levothyroxine Sodium) 75 Mcg Tab 75 Mcg PO DAILY Novolog Inj (Insulin Aspart) 1,000 Unit/10 Ml Vial 35 Units SQ PUMP Review of Systems Except as stated in HPI: all other systems reviewed are Neg Physical Exam Narrative GENERAL: 52-year-old female in no apparent distress SKIN: Focused skin assessment warm/dry. HEAD: Atraumatic. Normocephalic. EYES: Pupils equal and round. No scleral icterus. No injection or drainage. ENT: No nasal bleeding or discharge. Mucous membranes pink and moist. NECK: Trachea midline. CARDIOVASCULAR: Regular rate and rhythm. RESPIRATORY: No accessory muscle use. Clear to auscultation. Breath sounds equal bilaterally. GASTROINTESTINAL: Abdomen soft, non-tender, nondistended. MUSCULOSKELETAL: No obvious deformities. No clubbing. No cyanosis. No edema. NEUROLOGICAL: Awake and alert. No obvious cranial nerve deficits. Motor grossly within normal limits. Normal speech. PSYCHIATRIC: Appropriate mood and affect; insight and judgment normal. Data Data Last Documented VS Vital Signs Date Time Temp Pulse Resp B/P (MAP) Pulse Ox O2 Delivery O2 Flow Rate FiO2 11/10/17 11:16 94 18 115/60 (78) 98 Room Air 11/10/17 09:59 97.9 Orders Orders Electrocardiogram (11/10/17 10:08) Complete Blood Count With Diff (11/10/17 10:08) Comprehensive Metabolic Panel (11/10/17 10:08) Magnesium (Mg) (11/10/17 10:08) Phosphorus (Po4) (11/10/17 10:08) Beta Hydroxybutyrate (Acetone) (11/10/17 10:08) Lactic Acid (11/10/17 10:08) Urinalysis - C+S If Indicated (11/10/17 10:08) Chest, Single Ap (11/10/17 10:08) Blood Gas Venous (Vbg) (11/10/17 10:08) Blood Glucose (11/10/17 10:08) Ecg Monitoring (11/10/17 10:08) Iv Access Insert/Monitor (11/10/17 10:08) Oximetry (11/10/17 10:08) NPO (11/10/17 10:08) Sodium Chloride 0.9% Flush (Ns Flush) (11/10/17 10:15) Sodium Chlor 0.9% 1000 Ml Inj (Ns 1000 M (11/10/17 10:08) Troponin I (11/10/17 10:08) Lipase (11/10/17 10:08) Ckmb (Isoenzyme) Profile (11/10/17 10:08) Diet Npo (11/10/17 Lunch) Sodium Chlor 0.9% 1000 Ml Inj (Ns 1000 M (11/10/17 10:30) Insulin Regular (Iv Infusion) (Novolin R (11/10/17 11:15) Metoclopramide Inj (Reglan Inj) (11/10/17 11:30) Admit To Inpatient (11/10/17 ) Timekeeping Supervisor / Telemetry JÚNIOR.Q8H (11/10/17 11:29) ^ Insert Iv (11/10/17 11:29) ^ Teach Patient (11/10/17 11:29) Bedside Glucose JÚNIOR.Q1H (11/10/17 11:29) Sodium Chlor 0.9% 1000 Ml Inj (Ns 1000 M (11/10/17 11:29) Dext 5%-Nacl 0.9% 1000 Ml Inj (D5w-Ns 10 (11/10/17 11:29) Potassium Chlor 40 Meq Premix (Kcl 40 Me (11/10/17 11:30) Potassium Chlor 40 Meq Premix (Kcl 40 Me (11/10/17 11:30) Potassium Chlor 20 Meq Premix (Kcl 20 Me (11/10/17 11:30) Potassium Chlor 20 Meq Premix (Kcl 20 Me (11/10/17 11:30) Potassium Chlor 20 Meq Premix (Kcl 20 Me (11/10/17 11:30) Potassium Chlor 20 Meq Premix (Kcl 20 Me (11/10/17 11:30) Potassium Chlor 20 Meq Premix (Kcl 20 Me (11/10/17 11:30) Potassium Chlor 20 Meq Premix (Kcl 20 Me (11/10/17 11:30) Sodium Bicarbonate 8.4% Inj (Sodium Bica (11/10/17 11:30) Sodium Bicarbonate 8.4% Inj (Sodium Bica (11/10/17 11:30) Sodium Phosphate Inj (Sodium Phosphate I (11/10/17 11:30) Basic Metabolic Panel (Bmp) (11/10/17 16:29) Basic Metabolic Panel (Bmp) (11/10/17 22:29) Basic Metabolic Panel (Bmp) (11/11/17 04:29) Basic Metabolic Panel (Bmp) (11/11/17 10:29) Magnesium (Mg) (11/10/17 16:29) Magnesium (Mg) (11/10/17 22:29) Magnesium (Mg) (11/11/17 04:29) Magnesium (Mg) (11/11/17 10:29) Phosphorus (Po4) (11/10/17 16:29) Phosphorus (Po4) (11/10/17 22:29) Phosphorus (Po4) (11/11/17 04:29) Phosphorus (Po4) (11/11/17 10:29) Beta Hydroxybutyrate (Acetone) (11/10/17 22:29) Beta Hydroxybutyrate (Acetone) (11/11/17 10:29) ^ Initiate Protocol (11/10/17 11:29) Instruction (11/10/17 11:29) Nursing Information ([facility] [place] Nursing Inform (11/10/17 11:30) Chlorhexidine 2% Cloth (Chlorhexidine 2% (11/11/17 04:00) Chlorhexidine 2% Cloth (Chlorhexidine 2% (11/10/17 11:30) Mrsa Pcr Surveillance (11/10/17 11:29) Inpatient Certification (11/10/17 ) Admit Order (Ed Use Only) (11/10/17 11:41) Labs Laboratory Tests Test 11/10/17 10:05 11/10/17 10:08 11/10/17 10:20 11/10/17 11:16 Lactic Acid Level 1.2 mmol/L Blood Gas Puncture Site Blood Gas Patient Temperature 98.6 Venous Blood pH 7.21 Venous Blood Partial Pressure CO2 41 mmHg Venous Blood Partial Pressure O2 23 mmHg Venous Blood HCO3 15 mmol/L Venous Blood Oxygen Saturation 36 % Venous Blood Oxygen Content 7.3 Vol % Venous Blood Base Excess -11.0 mmol/L Blood Gas Inspired Oxygen 21 % White Blood Count 12.2 TH/MM3 Red Blood Count 4.43 MIL/MM3 Hemoglobin 14.3 GM/DL Hematocrit 43.4 % Mean Corpuscular Volume 98.0 FL Mean Corpuscular Hemoglobin 32.3 PG Mean Corpuscular Hemoglobin Concent 33.0 % Red Cell Distribution Width 12.4 % Platelet Count 332 TH/MM3 Mean Platelet Volume 8.3 FL Neutrophils (%) (Auto) 87.1 % Lymphocytes (%) (Auto) 8.9 % Monocytes (%) (Auto) 3.5 % Eosinophils (%) (Auto) 0.1 % Basophils (%) (Auto) 0.4 % Neutrophils # (Auto) 10.6 TH/MM3 Lymphocytes # (Auto) 1.1 TH/MM3 Monocytes # (Auto) 0.4 TH/MM3 Eosinophils # (Auto) 0.0 TH/MM3 Basophils # (Auto) 0.0 TH/MM3 CBC Comment DIFF FINAL Differential Comment Blood Urea Nitrogen 13 MG/DL Creatinine 1.04 MG/DL Random Glucose 289 MG/DL Total Protein 8.6 GM/DL Albumin 4.3 GM/DL Calcium Level 9.3 MG/DL Phosphorus Level 3.0 MG/DL Magnesium Level 1.9 MG/DL Alkaline Phosphatase 169 U/L Aspartate Amino Transf (AST/SGOT) 21 U/L Alanine Aminotransferase (ALT/SGPT) 33 U/L Total Bilirubin 0.5 MG/DL Sodium Level 137 MEQ/L Potassium Level 4.9 MEQ/L Chloride Level 104 MEQ/L Carbon Dioxide Level 12.4 MEQ/L Anion Gap 21 MEQ/L Estimat Glomerular Filtration Rate 56 ML/MIN Total Creatine Kinase 77 U/L Troponin I LESS THAN 0.02 NG/ML Lipase 65 U/L B-Hydroxybutyrate 8.09 MMOL/L MDM Medical Decision Making Medical Screen Exam Complete: Yes Emergency Medical Condition: Yes Medical Record Reviewed: Yes (pmh confirmed) Interpretation(s) CBC & BMP Diagram 11/10/17 10:20 Last 24 hours Impressions Chest X-Ray 11/10/17 1008 Signed Impressions: CONCLUSION: 1. Questionable new faint 5 mm pulmonary nodule peripheral left upper lung. Re commend repeat study with a two-view chest x-ray. 2. Otherwise, no acute intrathoracic disease. CBC & BMP Diagram 11/10/17 10:20 Total Protein 8.6 H, Albumin 4.3, Calcium Level 9.3, Phosphorus Level 3.0, Magnesium Level 1.9, Alkaline Phosphatase 169 H, Aspartate Amino Transf (AST/ SGOT) 21, Alanine Aminotransferase (ALT/SGPT) 33, Total Bilirubin 0.5 Differential Diagnosis DKA, atypical cardiac, renal failure, UTI Narrative Course Will check blood work, imaging and dose with IV fluids and reevaluate Patient is in DKA start insulin drip and electrolyte replacement. Will admit to the hospital for further care. Electrolytes reviewed. Potassium within normal limits. Insulin drip starting after IV fluids on recheck Critical Care Narrative Aggregate critical care time was 35 minutes. Time to perform other separately billable procedures was not included in the critical care time. My time did not include minutes spent treating any other patients simultaneously or on activities that did not directly contribute to the patient's treatment. The services I provided to this patient were to treat and/or prevent clinically significant deterioration that could result in: Electrolyte abnormality, shock, I provided critical care services requiring my management, as noted below: Chart data review, documentation time, medication orders and management, vital sign assessments/reviewing monitor data, ordering and reviewing lab tests, ordering and interpreting/reviewing x-rays and diagnostic studies, care of the patient and discussion of the patient with the admitting physicians. Physician Communication Physician Communication dr tate agrees to admit Diagnosis Primary Impression: DKA (diabetic ketoacidoses) Qualified Codes: E10.10 - Type 1 diabetes mellitus with ketoacidosis without coma Admitting Information Admitting Physician Requests: Admit Sophia Mojica MD Nov 10, 2017 11:03
[2017-11-10 11:26] LABS: ALKALINE PHOSPHATASE 169 U/L (45-117); ALT (GPT) 33 U/L (10-53); AST (GOT) 21 U/L (15-37); MAGNESIUM 1.9 MG/DL (1.5-2.5); TOTAL BILIRUBIN ADULT 0.5 MG/DL (0.2-1.0); TOTAL PROTEIN 8.6 GM/DL (6.4-8.2); TROPONIN I LESS THAN 0.02 NG/ML (0.02-0.05)
[2017-11-10] MEDS ORDERED: NURSING INFORMATION XX SCH (11:30)
[2017-11-10] MEDS ORDERED: CHLORHEXIDINE GLUCONATE 2 % 1 PACK (2 CLOTHS) TOP PRN (11:30)
[2017-11-10] MEDS ORDERED: METOCLOPRAMIDE HCL 10 MG/2 ML VIAL IV PUSH ONE (11:30)
[2017-11-10] MEDS ORDERED: POTASSIUM CHLOR 40 MEQ PREMIX 100 ML IV PRN ×2 (11:30)
[2017-11-10 11:49] LABS: BACTERIA, URINE RARE /hpf; BILIRUBIN, URINE NEG (NEG); BLOOD, URINE SMALL (NEG); GLUCOSE,URINE >=500 mg/dL (NEG); KETONE, URINE 80 OR GREATER mg/dL (NEG); NITRITE,URINE NEG (NEG); SQUAMOUS EPITHELIAL CELL URINE <1 /hpf (0-5); URINE COLOR Straw (YELLW/STRAW); URINE LEUKOCYTE ESTERASE NEG (NEG)
[2017-11-10] MEDS: SODIUM CHLOR 0.9% 1000 ML INJ 1,000 ML IV SCH ×2 (12:17→15:29)
[2017-11-10] MEDS ORDERED: PROCHLORPERAZINE INJ 10 MG/2 ML VIAL IV PUSH PRN ×2 (13:15→20:00)
[2017-11-10] MEDS ORDERED: DEXTROSE 50% IN WATER 50 ML VIAL(D50) IV PUSH PRN (13:15)
[2017-11-10] MEDS ORDERED: GLUCAGON 1 MG/ML VIAL OTHER PRN (13:15)
[2017-11-10] MEDS ORDERED: TEMAZEPAM 15 MG CAP PO PRN (13:15)
[2017-11-10] MEDS ORDERED: ONDANSETRON ODT 4 MG TAB PO PRN (13:30)
--- NOTE | 2017-11-10 13:33 | HHI.HP ---
[facility] Primary Care Physician Patricia Rivera MD Admission Diagnosis dka Diagnoses: (1) High anion gap metabolic acidosis (2) DKA (diabetic ketoacidoses) Chief Complaint: Nausea and vomiting Travel History International Travel<30 Days: No Contact w/Intl Traveler <30 Da: No Traveled to Known Affected Are: No History of Present Illness 52-year-old female for past medical history of diabetes type 1 presented to the ED for evaluation of worsening symptoms of nausea and vomiting associated with abdominal cramping. Patient states over the past several days to weeks she has been nauseated with occasional emesis, however this morning she woke up with increasing nausea associated with emesis and states she could be going into DKA and decided to come to the hospital. Review of Systems Except as stated in HPI: all other systems reviewed are Neg Past Family Social History Past Medical History Diabetes mellitus on insulins pump Hypothyroidism Anxiety Past Surgical History Cholecystectomy Bilateral inguinal hernia surgery Gastric duplication surgery Left shoulder closed reduction manipulation. Reported Medications Pristiq 24 HR (Desvenlafaxine ER 24 HR) 100 Mg Tab 100 Mg PO HS Zofran (Ondansetron HCl) 4 Mg Tab 4 Mg PO Q8HR PRN Levothyroxine (Levothyroxine Sodium) 75 Mcg Tab 75 Mcg PO DAILY Novolog Inj (Insulin Aspart) 1,000 Unit/10 Ml Vial 35 Units SQ PUMP Allergies: Coded Allergies: No Known Allergies (Verified Allergy, Unknown, 11/10/17) Family History Family positive for colon cancer Mother with colon cancer, CVA and GA Brother with colon cancer Father with COPD Social History Alcohol Use: Yes (RARELY) Tobacco Use: No Substance Use: No Physical Exam Vital Signs Vital Signs Date Time Temp Pulse Resp B/P (MAP) Pulse Ox O2 Delivery O2 Flow Rate FiO2 11/10/17 13:17 97.7 98 17 104/60 (75) 100 11/10/17 12:26 97.8 93 18 102/76 (85) 98 Room Air 11/10/17 11:16 94 18 115/60 (78) 98 Room Air 11/10/17 10:10 20 98 Room Air 11/10/17 10:10 89 18 98 Room Air 11/10/17 09:59 97.9 95 18 115/61 (79) 100 Physical Exam GENERAL: This is a well-nourished, well-developed patient, in no apparent distress. SKIN: No rashes, ecchymoses or lesions. Cool and dry. HEAD: Atraumatic. Normocephalic. No temporal or scalp tenderness. EYES: Pupils equal round and reactive. Extraocular motions intact. No scleral icterus. No injection or drainage. ENT: Nose without bleeding, purulent drainage or septal hematoma. Throat without erythema, tonsillar hypertrophy or exudate. Uvula midline. Airway patent. NECK: Trachea midline. No JVD or lymphadenopathy. Supple, nontender, no meningeal signs. CARDIOVASCULAR: Regular rate and rhythm without murmurs, gallops, or rubs. RESPIRATORY: Clear to auscultation. Breath sounds equal bilaterally. No wheezes , rales, or rhonchi. GASTROINTESTINAL: Abdomen soft, non-tender, nondistended. No hepato-splenomegaly , or palpable masses. No guarding. MUSCULOSKELETAL: Extremities without clubbing, cyanosis, or edema. No joint tenderness, effusion, or edema noted. No calf tenderness. Negative Homans sign bilaterally. NEUROLOGICAL: Awake and alert. Cranial nerves II through XII intact. Motor and sensory grossly within normal limits. Five out of 5 muscle strength in all muscle groups. Normal speech. Laboratory Laboratory Tests Test 11/10/17 10:05 11/10/17 10:08 11/10/17 10:20 11/10/17 11:16 Lactic Acid Level 1.2 Blood Gas Puncture Site Blood Gas Patient Temperature 98.6 Venous Blood pH 7.21 Venous Blood Partial Pressure CO2 41 Venous Blood Partial Pressure O2 23 Venous Blood HCO3 15 Venous Blood Oxygen Saturation 36 Venous Blood Oxygen Content 7.3 Venous Blood Base Excess -11.0 Blood Gas Inspired Oxygen 21 White Blood Count 12.2 Red Blood Count 4.43 Hemoglobin 14.3 Hematocrit 43.4 Mean Corpuscular Volume 98.0 Mean Corpuscular Hemoglobin 32.3 Mean Corpuscular Hemoglobin Concent 33.0 Red Cell Distribution Width 12.4 Platelet Count 332 Mean Platelet Volume 8.3 Neutrophils (%) (Auto) 87.1 Lymphocytes (%) (Auto) 8.9 Monocytes (%) (Auto) 3.5 Eosinophils (%) (Auto) 0.1 Basophils (%) (Auto) 0.4 Neutrophils # (Auto) 10.6 Lymphocytes # (Auto) 1.1 Monocytes # (Auto) 0.4 Eosinophils # (Auto) 0.0 Basophils # (Auto) 0.0 CBC Comment DIFF FINAL Differential Comment Blood Urea Nitrogen 13 Creatinine 1.04 Random Glucose 289 Total Protein 8.6 Albumin 4.3 Calcium Level 9.3 Phosphorus Level 3.0 Magnesium Level 1.9 Alkaline Phosphatase 169 Aspartate Amino Transf (AST/SGOT) 21 Alanine Aminotransferase (ALT/SGPT) 33 Total Bilirubin 0.5 Sodium Level 137 Potassium Level 4.9 Chloride Level 104 Carbon Dioxide Level 12.4 Anion Gap 21 Estimat Glomerular Filtration Rate 56 Total Creatine Kinase 77 Troponin I LESS THAN 0.02 Lipase 65 B-Hydroxybutyrate 8.09 Urine Color Straw Urine Turbidity CLEAR Urine pH 5.0 Urine Specific [place] 1.020 Urine Protein NEG Urine Glucose (UA) >=500 Urine Ketones 80 OR GREATER Urine Occult Blood SMALL Urine Nitrite NEG Urine Bilirubin NEG Urine Urobilinogen LESS THAN 2 Urine Leukocyte Esterase NEG Urine RBC LESS THAN 1 Urine WBC 2 Urine Squamous Epithelial Cells <1 Urine Bacteria RARE Microscopic Urinalysis Comment CULT NOT INDICATED Result Diagram: 11/10/17 1020 11/10/17 1020 Imaging Last Impressions Chest X-Ray 11/10/17 1008 Signed Impressions: CONCLUSION: 1. Questionable new faint 5 mm pulmonary nodule peripheral left upper lung. Re commend repeat study with a two-view chest x-ray. 2. Otherwise, no acute intrathoracic disease. Septic Shock Reassessment Septic shock perfusion: reassessment completed Caprini VTE Risk Assessment Caprini VTE Risk Assessment: No/Low Risk (score <= 1) Caprini Risk Assessment Model Point Value = 1 Point Value = 2 Point Value = 3 Point Value = 5 Age 41-60 Minor surgery BMI > 25 kg/m2 Swollen legs Varicose veins or History of unexplained or recurrent spontaneous Oral contraceptives or hormone replacement Sepsis (< 1 month) Serious lung disease, including pneumonia (< 1 month) Abnormal pulmonary function Acute myocardial infarction Congestive heart failure (< 1 month) History of inflammatory bowel disease Medical patient at bed rest Age 61-74 Arthroscopic surgery Major open surgery (> 45 min) Laparoscopic surgery (> 45 min) Malignancy Confined to bed (> 72 hours) Immobilizing plaster cast Central venous access Age >= 75 History of VTE Family history of VTE Factor V Leiden Prothrombin [id number] Lupus anticoagulant Anticardiolipin antibodies Elevated serum homocysteine Heparin-induced thrombocytopenia Other congenital or acquired thrombophilia Stroke (< 1 month) Elective arthroplasty Hip, pelvis, or leg fracture Acute spinal cord injury (< 1 month) Prophylaxis Regimen Total Risk Factor Score Risk Level Prophylaxis Regimen 0-1 Low Early ambulation 2 Moderate Order ONE of the following: *Sequential Compression Device (SCD) *Heparin 5000 units SQ BID 3-4 Higher Order ONE of the following medications: *Heparin 5000 units SQ TID *Enoxaparin/Lovenox 40 mg SQ daily (WT < 150 kg, CrCl > 30 mL/min) *Enoxaparin/Lovenox 30 mg SQ daily (WT < 150 kg, CrCl > 10-29 mL/min) *Enoxaparin/Lovenox 30 mg SQ BID (WT < 150 kg, CrCl > 30 mL/min) AND/OR *Sequential Compression Device (SCD) 5 or more Highest Order ONE of the following medications: *Heparin 5000 units SQ TID (Preferred with Epidurals) *Enoxaparin/Lovenox 40 mg SQ daily (WT < 150 kg, CrCl > 30 mL/min) *Enoxaparin/Lovenox 30 mg SQ daily (WT < 150 kg, CrCl > 10-29 mL/min) *Enoxaparin/Lovenox 30 mg SQ BID (WT < 150 kg, CrCl > 30 mL/min) AND *Sequential Compression Device (SCD) Assessment and Plan Problem List: (1) DKA (diabetic ketoacidoses) ICD Code: E13.10 - Other specified diabetes mellitus with ketoacidosis without coma Status: Acute (2) High anion gap metabolic acidosis ICD Code: E87.2 - Acidosis (3) Hypothyroidism ICD Code: E03.9 - Hypothyroidism, unspecified Assessment and Plan 52-year-old female with DKA However glucose of 289 and elevated beta hydroxybutyrate Hold on started insulin drip Start aggressive IV fluid hydration and serial electrolyte monitoring Patient already restarted her insulin pump Consider endocrinology consultation High anion gap metabolic acidosis Secondary to DKA Treated as an above Leukocytosis Stress reactive Chest x-ray noted and reviewed by me without any cardiopulmonary disease 5 mm left pulmonary nodule on chest x-ray Check 2 view chest x-ray Hypothyroidism, anxiety Resume outpatient medications DVT prophylaxis: Bilateral SCDs Code Status Full code Discussed Condition With ED physician, patient, Physician Certification 2 Midnight Certification Type: Admission for Inpatient Services Order for Inpatient Services The services are ordered in accordance with Medicare regulations or non- Medicare payer requirements, as applicable. In the case of services not specified as inpatient-only, they are appropriately provided as inpatient services in accordance with the 2-midnight benchmark. Estimated LOS (days): 2 days is the estimated time the patient will need to remain in the hospital, assuming treatment plan goals are met and no additional complications. Post-Hospital Plan: Not yet determined Problem Qualifiers (1) DKA (diabetic ketoacidoses): Qualified Codes: E10.10 - Type 1 diabetes mellitus with ketoacidosis without coma Daniel Contreras MD Nov 10, 2017 13:33
[2017-11-10] MEDS: DEXT 5%-NACL 0.9% 1000 ML INJ 1,000 ML IV SCH ×2 (14:22→16:29)
[2017-11-10 16:41] LABS: BICARBONATE 12.3 MEQ/L (21.0-32.0); CALCIUM 8.3 MG/DL (8.5-10.1); CREATININE 0.91 MG/DL (0.50-1.00); MAGNESIUM 1.7 MG/DL (1.5-2.5); PHOSPHORUS 1.9 MG/DL (2.5-4.9)
[2017-11-10] MEDS ORDERED: DESVENLAFAXINE 100 MG PO SCH (21:00)
[2017-11-10 23:20] LABS: BICARBONATE 11.1 MEQ/L (21.0-32.0); CALCIUM 7.6 MG/DL (8.5-10.1); CREATININE 0.97 MG/DL (0.50-1.00); MAGNESIUM 1.5 MG/DL (1.5-2.5); PHOSPHORUS 1.5 MG/DL (2.5-4.9)
[2017-11-11] VITALS: BP 134/82; PULSE 86; PULSE 87; RESP 16; RESP 20; TEMP 98.4; TEMP 98.8; O2SAT 93; O2SAT 97
[2017-11-11] MEDS: DEXT 5%-NACL 0.9% 1000 ML INJ 1,000 ML IV SCH (00:53)
[2017-11-11 04:00] VITALS: BP 96/49; PULSE 96; RESP 18; TEMP 97.8; O2SAT 96
[2017-11-11] MEDS ORDERED: CHLORHEXIDINE GLUCONATE 2 % 1 PACK (2 CLOTHS) TOP SCH (04:00)
[2017-11-11 04:47] LABS: BICARBONATE 13.5 MEQ/L (21.0-32.0); CALCIUM 8.1 MG/DL (8.5-10.1); CREATININE 0.91 MG/DL (0.50-1.00); MAGNESIUM 1.6 MG/DL (1.5-2.5); PHOSPHORUS 1.3 MG/DL (2.5-4.9)
[2017-11-11] MEDS: LEVOTHYROXINE SODIUM 75 MCG TAB PO SCH ×2 (06:37→07:57)
[2017-11-11 07:00] VITALS: BP 123/56; PULSE 86; RESP 18; TEMP 98.4; O2SAT 100
--- NOTE | 2017-11-11 09:06 | HHI.PR ---
Subjective Remarks Follow-up DKA/high anion gap metabolic acidosis November 11, 2017-patient seen and examined, report improvements of nausea and emesis. States she would like to be discharged home. Objective Vitals Vital Signs Date Time Temp Pulse Resp B/P (MAP) Pulse Ox O2 Delivery O2 Flow Rate FiO2 11/11/17 04:00 97.8 96 18 96/49 (65) 96 11/11/17 04:00 96 11/11/17 00:00 98.4 86 16 134/82 (99) 97 11/11/17 00:00 87 11/11/17 00:00 98.8 87 20 134/82 (99) 93 11/10/17 22:00 87 11/10/17 20:00 87 11/10/17 20:00 99.6 102 22 139/84 (102) 95 11/10/17 18:00 96 17 114/58 (76) 96 11/10/17 17:00 97 11/10/17 16:00 97 11/10/17 15:00 98.6 102 18 117/90 (99) 11/10/17 15:00 102 11/10/17 14:21 97.8 98 18 118/60 (79) 100 11/10/17 13:17 97.7 98 17 104/60 (75) 100 11/10/17 12:26 97.8 93 18 102/76 (85) 98 Room Air 11/10/17 11:16 94 18 115/60 (78) 98 Room Air 11/10/17 10:10 20 98 Room Air 11/10/17 10:10 89 18 98 Room Air 11/10/17 09:59 97.9 95 18 115/61 (79) 100 I/O 11/10/17 11/10/17 11/10/17 11/11/17 11/11/17 11/11/17 07:00 15:00 23:00 07:00 15:00 23:00 Intake Total 2600 ml 50 ml 2461 ml Output Total 1250 ml Balance 2600 ml 50 ml 1211 ml Intake Oral 50 ml 50 ml IV Total 2600 ml 2411 ml Output Urine Total 1200 ml Emesis 50 ml # Voids 1 2 # Bowel Movements 0 Result Diagram: 11/10/17 1020 11/11/17 0235 Imaging Last Impressions Chest X-Ray 11/10/17 1008 Signed Impressions: CONCLUSION: 1. Questionable new faint 5 mm pulmonary nodule peripheral left upper lung. Re commend repeat study with a two-view chest x-ray. 2. Otherwise, no acute intrathoracic disease. Objective Remarks GENERAL: NAD SKIN: Warm and dry. HEAD: Normocephalic. EYES: No scleral icterus. No injection or drainage. NECK: Supple, trachea midline. No JVD or lymphadenopathy. CARDIOVASCULAR: Regular rate and rhythm without murmurs, gallops, or rubs. RESPIRATORY: Breath sounds equal bilaterally. No accessory muscle use. GASTROINTESTINAL: Abdomen soft, non-tender, nondistended. MUSCULOSKELETAL: No cyanosis, or edema. BACK: Nontender without obvious deformity. No CVA tenderness. Procedures none A/P Problem List: (1) DKA (diabetic ketoacidoses) ICD Code: E13.10 - Other specified diabetes mellitus with ketoacidosis without coma Status: Acute (2) High anion gap metabolic acidosis ICD Code: E87.2 - Acidosis (3) Hypothyroidism ICD Code: E03.9 - Hypothyroidism, unspecified Assessment and Plan 52-year-old female with DKA Resolve with aggressive IV fluid hydration and serial electrolyte monitoring Patient already restarted her insulin pump High anion gap metabolic acidosis-improving Secondary to DKA Treated as an above Leukocytosis Stress reactive Chest x-ray noted and reviewed by me without any cardiopulmonary disease 5 mm left pulmonary nodule on chest x-ray Recommend outpatient 2 view chest x-ray Hypothyroidism, anxiety Continue outpatient medications DVT prophylaxis: Bilateral SCDs Discharge Planning Discharge patient to home Condition on discharge: Improved ADA Diet as tolerated Ad Eladia activity Rx written:None Follow-up with primary care physician in 1 week Problem Qualifiers (1) DKA (diabetic ketoacidoses): Qualified Codes: E10.10 - Type 1 diabetes mellitus with ketoacidosis without coma Daniel Contreras MD Nov 11, 2017 09:06
--- NOTE | 2017-11-11 14:12 | EKG ---
Date Performed: 11/10/2017 Time Performed: 10:36:16 PTAGE: 52 years EKG: Sinus rhythm MARKED LEFT AXIS DEVIATION ABNORMAL ECG PREVIOUS TRACING : 10/22/2016 11.07 DOCTOR: Josemanuel Rizzo Interpretating Date/Time 11/11/2017 14:12:15
== END 2017-11-11 10:30 | disposition home or self-care (01) | DRG 639 ==
LOC: NEPE 09:55 → NEDA 11:43 → HIMW 14:40
PROVIDERS: ADMIT Hospitalist; ATTEND Hospitalist
DX: E10.10 Type 1 diabetes mellitus with ketoacidosis without coma (principal); E03.9 Hypothyroidism, unspecified; R91.1 Solitary pulmonary nodule; Z96.41 Presence of insulin pump (external) (internal); F41.9 Anxiety disorder, unspecified; D72.829 Elevated white blood cell count, unspecified
CPT/HCPCS: 71045; 80048; 80053; 81001; 82010; 82550; 82805; 82948; 83605; 83690; 83735; 84100; 84484; 85025; 87641; 93005; J1817; J2765; J3480; J7030; J7042